=== PATIENT | male | born 1980 | race Caucasian/White ===

== ENCOUNTER 2018-01-14 07:16 | Emergency (ER) | payer BC, OTHER ==
[~2018-01-14] VITALS: Ht 177.8 cm; Wt 190.5 kg
[2018-01-14 08:00] VITALS: BP 152/97
--- NOTE | 2018-01-14 08:01 | PHYS DOC ---
Adult General Chief Complaint Chief Complaint: BACK PAIN - NO INJURY HPI HPI 37-year-old male presents with lower back pain on the left side. He has had progressive pain in the last 3 days. The pain is a cramping and burning sensation that radiates across the left buttocks and down the posterior of the left leg. He has not had pain like this before. The pain is manageable most the time, but going up steps or bending forward causes the most pain. He gets up to a 7 out of 10. The patient on a new house has been doing renovations and lots of new and unusual movements. He thinks this is likely the cause of the pain. His PCP is closed today due to holiday. Patient has not taken any medications for this. He is not diabetic. He does not like to take very many medications. He denies fever, chills, trauma. Review of Systems Review of Systems Constitutional: Denies fever or chills [] Eyes: Denies change in visual acuity, redness, or eye pain [] HENT: Denies nasal congestion or sore throat [] Respiratory: Denies cough or shortness of breath [] Cardiovascular: No additional information not addressed in HPI [] GI: Denies abdominal pain, nausea, vomiting, bloody stools or diarrhea [] : Denies dysuria or hematuria [] Musculoskeletal: Low back pain[] Integument: Denies rash or skin lesions [] Neurologic: Denies headache, focal weakness or sensory changes [] Endocrine: Denies polyuria or polydipsia [] All other systems were reviewed and found to be within normal limits, except as documented in this note. Allergies Allergies Allergies Coded Allergies Type Severity Reaction Last Updated Verified No Known Drug Allergies 01/14/18 No Physical Exam Physical Exam Constitutional: Well developed, well nourished, no acute distress, non-toxic appearance. [] HENT: Normocephalic, atraumatic, bilateral external ears normal, oropharynx moist, no oral exudates, nose normal. [] Eyes: PERRLA, EOMI, conjunctiva normal, no discharge. [] Neck: Normal range of motion, no tenderness, supple, no stridor. [] Cardiovascular:Heart rate regular rhythm, no murmur [] Lungs & Thorax: Bilateral breath sounds clear to auscultation [] Abdomen: Bowel sounds normal, soft, no tenderness, no masses, no pulsatile masses. [] Skin: Warm, dry, no erythema, no rash. [] Back: Left sacroiliac tenderness. Left piriformis tenderness. Pain with straight leg raise.[] Extremities: No tenderness, no cyanosis, no clubbing, ROM intact, no edema. [] Neurologic: Alert and oriented X 3, normal motor function, normal sensory function, no focal deficits noted. [] Psychologic: Affect normal, judgement normal, mood normal. [] EKG EKG [] Radiology/Procedures Radiology/Procedures [] Course & Med Decision Making Course & Med Decision Making Pertinent Labs and Imaging studies reviewed. (See chart for details) The patient has left sacroiliitis with likely piriformis spasm and sciatica. I will treat him with prednisone for 5 days for inflammation and I will give him Paradox 12/20/24 for breakthrough pain and Flexeril for muscle relaxant. [] Dragon Disclaimer Dragon Disclaimer This electronic medical record was generated, in whole or in part, using a voice recognition dictation system. Departure Departure: Referrals: SANDRA MONSON (PCP) PAULINE BONNER DO January 14, 2018 08:01
[2018-01-14] MEDS ORDERED: CYCL-331 PO (08:05)
[2018-01-14] MEDS ORDERED: PRED50TA PO (08:05)
[2018-01-14] MEDS ORDERED: HYDR-971 PO (08:05)
== END 2018-01-14 08:10 | disposition home or self-care (01) ==
LOC: ER 07:16
DX: M46.1 Sacroiliitis, not elsewhere classified (principal)
CPT/HCPCS: 99283

== ENCOUNTER → 2019-10-20 | Outpatient (CLI) | payer BC ==
[~2019-10-20] MED LIST: CYCL-331 PO; HYDR-3165 PO; PRED50TA PO
--- NOTE | 2019-10-20 17:42 | RAD ---
EXAM: CT Orbits without IV contrast INDICATION: Left ear pain and swelling after 3 rounds of antibiotics. TECHNIQUE: Multi-detector row CT images were obtained through the orbits without the use of IV contrast. Images were acquired at 3 mm slice thickness and reviewed in multiplanar reformats. Post-processing reconstructed images were obtained for interpretation. All CT scans performed at this facility utilize dose optimization techniques as appropriate to the exam, including the following: Automated exposure control and adjustment of the mA and/or KV according to patient size (this includes techniques or standardized protocols for targeted exams where dose is indication/reason for exam). IV CONTRAST: Administered COMPARISON: None FINDINGS: ORBITS: The globes are normal in size, contour, and position. The course and caliber of the optic nerve sheath complex is within normal limits. The extraocular muscles, intraconal fat, and extraconal fat are unremarkable. The lacrimal glands appear normal. The orbital napoles and optic canals are normal. VISUALIZED INTRACRANIAL STRUCTURES: Unremarkable. SINUSES: Visualized paranasal sinuses and mastoid air cells are clear. OSSEOUS & SOFT TISSUES: There is wall thickening in the left external auditory canal as well as soft tissue opacification of the middle ear, epitympanum and hypotympanum resulting in obscuring of the ossicular chain. Mastoids bilaterally are hypoplastic. IMPRESSION: Bilateral hypoplastic mastoids with left ear soft tissue opacification of the middle ear cavity. This could reflect otitis media in the appropriate clinical context. Consider temporal bone CT for more detailed evaluation of the middle ear structures as examination was performed to assess the orbits rather than the temporal bones. Electronically signed by: Stefania Medina MD (10/20/2019 5:39 PM) [id number]
== END | disposition home or self-care (01) ==
LOC: CT 12:49
PROVIDERS: ATTEND Physician Assistant Medical
DX: H66.92 Otitis media, unspecified, left ear (principal); H74.8X2 Other specified disorders of left middle ear and mastoid; Q17.8 Other specified congenital malformations of ear
CPT/HCPCS: 70480